=== PATIENT | male | born 1995 | race Caucasian/White ===

== ENCOUNTER 2023-09-20 10:02 | Emergency (ER) | payer BC ==
[~2023-09-20] VITALS: Ht 172.7 cm; Wt 99.8 kg
[2023-09-20] MEDS: IV NORMAL SALINE 1000 ML BAG IV ONE (10:55)
[2023-09-20] MEDS ORDERED: DEXAMETHASONE SOD PHOSPHATE 10 MG INJ ONE (10:57)
[2023-09-20] MEDS ORDERED: AZITHROMYCIN 250 MG TABLET ONE (10:57)
[2023-09-20] MEDS ORDERED: CEFTRIAXONE /D5W 50ML IVPB **ER PYXIS IV ONE (10:57)
[2023-09-20 10:58] LABS: BASOPHILS # (AUTO) 0.2 K/UL (0.0-0.2); EOSINOPHILS # (AUTO) 0.1 K/uL (0.0-0.7); EOSINOPHILS % (AUTO) 1.5 % (0.0-7.0); HEMATOCRIT 43.4 % (36.7-47.1); HEMOGLOBIN 14.4 g/dL (12.5-16.3); LYMPHOCYTES # (AUTO) 0.7 K/uL (0.8-4.8); LYMPHOCYTES % (AUTO) 13.8 % (20.5-51.5); MEAN CORPUSCULAR HEMOGLOBIN 28.8 uug (23.8-33.4); MEAN CORPUSCULAR HGB CONC 33 g/dL (32.5-36.3); MEAN CORPUSCULAR VOLUME 86.9 fL (73.0-96.2); MONOCYTES # (AUTO) 0.3 K/uL (0.1-1.30); MONOCYTES % (AUTO) 5.8 % (0.0-11.0); NEUTROPHILS # (AUTO) 4.1 K/uL (1.8-8.9); NEUTROPHILS % (AUTO) 75.9 % (38.5-71.5); PLATELET COUNT (AUTO) 131 K/uL (152-348); RED CELL DISTRIBUTION WIDTH 13.5 % (12.1-16.2); WHITE BLOOD COUNT (AUTO) 5.4 K/uL (3.6-10.2)
[2023-09-20] MEDS: CEFTRIAXONE 1 G in IV DEXTROSE 5% 50 ML IV ONE (11:00)
[2023-09-20] MEDS: AZITHROMYCIN 250 MG TABLET PO ONE (11:00)
[2023-09-20] MEDS: DEXAMETHASONE SOD PHOSPHATE 4 MG INJ IV ONE (11:00)
[2023-09-20 11:02] LABS: DIFFERENTIAL COMMENT 1
[2023-09-20 11:06] LABS: CARBON DIOXIDE 25 mmol/L (21-32); CHLORIDE 100 mmol/L (98-107); CREATININE 1.1 mg/dL (0.6-1.3); GLUCOSE 89 mg/dL (74-106); POTASSIUM 3.6 mmol/L (3.5-5.1); SODIUM SERUM 137 mmol/L (136-145); UREA NITROGEN, BLOOD 17 mg/dL (7-18)
[2023-09-20 11:18] LABS: ALANINE AMINOTRANSFERASE 47 U/L (16-63); ALBUMIN 3.8 g/dL (3.4-5.0); ALKALINE PHOSPHATASE 113 U/L (50-136); ASPARTATE AMINOTRANSFERASE 31 U/L (15-37); BILIRUBIN,DIRECT 0.2 mg/dL (0.0-0.2); BILIRUBIN,TOTAL 0.8 mg/dL (0.2-1.0); NT-PRO BNP 14 pg/mL (0-125); TOTAL PROTEIN, SERUM 7.2 g/dL (6.4-8.2)
[2023-09-20] MEDS ORDERED: KETOROLAC TROMETHAMINE 15 MG INJ ONE (11:18)
[2023-09-20] MEDS: KETOROLAC TROMETHAMINE 15 MG INJ IVP ONE (11:22)
[2023-09-20] MEDS ORDERED: IV NORMAL SALINE 250 ML IV ONE (12:05)
[2023-09-20] MEDS ORDERED: SWABABLE VALVE TRANSFER SET EA MC ONE (12:05)
[2023-09-20] MEDS ORDERED: IOHEXOL 300MG/ML 100 ML INFUS..BTL ONE (12:05)
[2023-09-20] MEDS ORDERED: AZIT500T PO (13:24)
[2023-09-20] MEDS ORDERED: PRED50TA PO (13:24)
[2023-09-20] MEDS ORDERED: PROM118S5 PO (13:26)
[2023-09-20] MEDS ORDERED: ALBU8.5H8 INH (13:26)
[2023-09-20 13:35] VITALS: BP 119/71; TEMP 98.5; O2SAT 98
== END 2023-09-20 13:35 | disposition home or self-care (01) ==
LOC: ER 10:02
DX: J18.9 Pneumonia, unspecified organism (principal); R07.89 Other chest pain; Z79.2 Long term (current) use of antibiotics; Z79.899 Other long term (current) drug therapy; Z20.822 Contact with and (suspected) exposure to COVID-19
CPT/HCPCS: 99285; 96365; 71260; 96375; 71045; 87426; 80076; 80048; 83880; 85025; 84145; 85730; 87040 ×2; 84484; 36415; 83605; J0696; J1100; J1885; Q9967; J7040 ×2; A4606; A4663; Q0144